=== PATIENT | male | born 1960 | race Caucasian/White ===

== ENCOUNTER 2018-08-23 19:56 | Emergency (ER) | payer SELFPAY ==
[2018-08-23] MEDS ORDERED: AMMONIA INHALANT IH ONE (20:09)
[2018-08-23] MEDS ORDERED: NACL 0.9% 1000 ML 1,000 ML IV ONE (20:26)
[2018-08-23] MEDS ORDERED: ASPIRIN PO ONE (20:26)
--- NOTE | 2018-08-23 20:28 | Emergency Department Report ---
ED Syncope HPI - General Chief Complaint: Altered Mental Status Stated Complaint: GENERAL WEAKNESS Time Seen by Provider: 08/23/18 19:56 Source: patient, EMS Exam Limitations: no limitations - History of Present Illness Initial Comments: Patient is a 58-year-old male presents after a syncopal episode. Patient states he was outside all day and he and he passed out. The patient was brought in by EMS. Patient states prior to passing out he had chest pain. His pain is a 4 out of 10. Patient's Center just not radiating. Patient denies shortness of breath and fever. Patient states the pain is better with rest and worse with exertion. Timing/Prior Episodes: single episode today Precipitating Factors: Positive: diaphoresis, lightheadedness, nausea, rapid heart beat Context: standing Loss of Consciousness: brief (seconds) Current Symptoms: blurred vision, chest pain, diaphoresis, dizziness, lightheadedness, nausea. denies: headache, injury, loss of bladder control, loss of bowel control, motionless - Related Data Allergies/Adverse Reactions: Allergies grass pollen Allergy (Verified 08/23/18 20:12) Unknown tetracycline Allergy (Verified 08/23/18 20:22) Hives ants Allergy (Uncoded 08/23/18 20:12) Unknown ED Review of Systems ROS: Stated complaint: GENERAL WEAKNESS Other details as noted in HPI Constitutional: denies: chills, fever Eyes: denies: eye pain, eye discharge, vision change ENT: denies: ear pain, throat pain Respiratory: denies: cough, shortness of breath, wheezing Cardiovascular: chest pain. denies: palpitations Endocrine: no symptoms reported Gastrointestinal: denies: abdominal pain, nausea, diarrhea Genitourinary: denies: urgency, dysuria Musculoskeletal: denies: back pain, joint swelling, arthralgia Skin: denies: rash, lesions Neurological: denies: headache, weakness, paresthesias Psychiatric: denies: anxiety, depression Hematological/Lymphatic: denies: easy bleeding, easy bruising ED Past Medical Hx - Past Medical History Previous Medical History?: Yes Hx Hypertension: Yes Hx CVA: Yes Hx Congestive Heart Failure: Yes Hx Diabetes: Yes - Surgical History Past Surgical History?: Yes Additional Surgical History: Nose - Family History Family history: no significant - Social History Smoking Status: Current Every Day Smoker Substance Use Type: None ED Physical Exam - General Limitations: No Limitations General appearance: alert, in no apparent distress - Head Head exam: Present: atraumatic, normocephalic - Eye Eye exam: Present: normal appearance - ENT ENT exam: Present: mucous membranes dry - Neck Neck exam: Present: normal inspection - Respiratory Respiratory exam: Present: normal lung sounds bilaterally. Absent: respiratory distress - Cardiovascular Cardiovascular Exam: Present: regular rate, normal rhythm. Absent: systolic mu rmur, diastolic murmur, rubs, gallop - GI/Abdominal GI/Abdominal exam: Present: soft, normal bowel sounds. Absent: distended, tenderness, guarding - Rectal Rectal exam: Present: deferred - Extremities Exam Extremities exam: Present: normal inspection - Back Exam Back exam: Present: normal inspection - Neurological Exam Neurological exam: Present: alert, oriented X3, CN II-XII intact, normal gait - Psychiatric Psychiatric exam: Present: normal affect, normal mood. Absent: homicidal ideation, suicidal ideation - Skin Skin exam: Present: warm, dry, intact, normal color. Absent: rash ED Course - Reevaluation(s) Reevaluation #1: I discussed plan of care with patient. Patient refuses to have his blood drawn. Patient states he wants to leave the hospital. I discussed the risks with patient. Patient voiced understanding of risks. Patient signed AMA. Patient left the hospital AGAINST MEDICAL ADVICE. 08/23/18 20:39 ED Medical Decision Making - Medical Decision Making She is a 58-year-old male Presents to emergency room with syncopal episode and heat exhaustion and chest pain. Patient left the hospital AGAINST MEDICAL ADVICE. Patient signed AMA form. Patient voiced understanding of the risk of leaving the hospital AGAINST MEDICAL ADVICE after I explained the risk. Labs were able to be done. No EKG done. No diagnostic evaluation done. - Differential Diagnosis chest pain. Syncope. Heat exhaustion Critical care attestation.: If time is entered above; I have spent that time in minutes in the direct care of this critically ill patient, excluding procedure time. ED Disposition Clinical Impression: Syncope Qualifiers: Syncope type: unspecified Qualified Code(s): R55 - Syncope and collapse Chest pain Qualifiers: Chest pain type: unspecified Qualified Code(s): R07.9 - Chest pain, unspecified Disposition: LEFT AGAINST MED ADVICE Is pt being admited?: No Does the pt Need Aspirin: No Condition: Critical Instructions: Chest Pain (ED), Syncope (ED) Referrals: MULU OROZCO MD [Primary Care Provider] - 3-5 Days Forms: AMA Form Time of Disposition: 20:40
[2018-08-23] MEDS ORDERED: XYLOCAINE 1% 20 mL ONE (20:46)
== END 2018-08-23 20:59 | disposition left against medical advice (07) ==
LOC: ED 19:56
DX: R07.89 Other chest pain (principal); R55 Syncope and collapse; I11.0 Hypertensive heart disease with heart failure; I50.9 Heart failure, unspecified; E11.9 Type 2 diabetes mellitus without complications; F17.200 Nicotine dependence, unspecified, uncomplicated; Z91.09 Other allergy status, other than to drugs and biological substances; Z88.1 Allergy status to other antibiotic agents